=== PATIENT | female | born 1970 | race Caucasian/White ===

== ENCOUNTER → 2024-09-21 08:40 | Outpatient (REF) | payer BC, SELFPAY | LOC: HWWDC 08:40 | PROVIDERS: ATTENDING PHYSICIAN Obstetrics & Gynecology; FAMILY PHYSICIAN Physician Assistant Medical | DX: Z12.31 Encounter for screening mammogram for malignant neoplasm of breast (principal) | CPT/HCPCS: 77063; 77067 ==

== ENCOUNTER → 2025-01-28 07:50 | Outpatient (REF) | payer BC, SELFPAY | LOC: RAD 07:50 | PROVIDERS: ATTENDING PHYSICIAN Family Medicine | DX: R05.1 Acute cough (principal) | CPT/HCPCS: 71046 ==

== ENCOUNTER → 2025-06-03 07:42 | Outpatient (REF) | payer BC, SELFPAY | LOC: HWRAD 07:42 | PROVIDERS: ATTENDING PHYSICIAN Obstetrics & Gynecology; FAMILY PHYSICIAN Physician Assistant Medical | DX: N92.6 Irregular menstruation, unspecified (principal) | CPT/HCPCS: 76830; 76856 ==

== ENCOUNTER 2025-09-09 06:36 | Day surgery (SDC) | payer BC, SELFPAY ==
[2025-08-25 11:00] LABS: Hematocrit 39.9 % (37.0-47.0); Hemoglobin 13.1 g/dL (12.0-16.0); Mean Corp Hgb Conc. 32.8 g/dL (33.0-37.0); Mean Corpuscular Volume 86.0 fL (81.0-99.0); Nucleated Red Blood Cells % 0 %; Platelet Count 397 10^3/uL (130-400); Red Cell Dist. Width 14.6 % (11.5-14.5)
[2025-08-25 11:16] LABS: INR 0.99
[2025-08-25 11:17] LABS: APTT 28.5 Sec (23.4-35.0); PT 12.9 Sec (11.4-14.6)
[2025-08-25 13:53] VITALS: BMI 46.5
[2025-09-09] VITALS (8 sets, daily range): BP systolic 106–156; BP diastolic 64–87; BMI 46.5
[2025-09-09 12:05] LABS: Glucose - Point of Care 120 mg/dl (70-99)
[2025-09-09] MEDS: TYLENOL 1000 MG PO (12:05)
[2025-09-09] MEDS: NORMOSOL-R/PLASMALYTE-A 1000 IV (12:05)
[2025-09-09 14:40] LABS: Glucose - Point of Care 99 mg/dl (70-99)
== END 2025-09-09 16:56 | disposition home or self-care (01) ==
LOC: SDS 06:36
PROVIDERS: ATTENDING PHYSICIAN Obstetrics & Gynecology; FAMILY PHYSICIAN Physician Assistant Medical
DX: C54.1 Malignant neoplasm of endometrium (principal); N93.9 Abnormal uterine and vaginal bleeding, unspecified; N92.5 Other specified irregular menstruation; E28.2 Polycystic ovarian syndrome; E11.9 Type 2 diabetes mellitus without complications; I10 Essential (primary) hypertension; Z79.84 Long term (current) use of oral hypoglycemic drugs; Z79.899 Other long term (current) drug therapy
CPT/HCPCS: 58558; 36415; 82962; 85025; 85610; 85730; 88305; 88342; 88360; 93005